=== PATIENT | female | born 1950 | race Caucasian/White ===

== ENCOUNTER → 2018-04-14 | Outpatient (CLI) | payer MEDICARE ==
[~2018-04-14] MED LIST: AMLO1CAP12 PO; ANAS1TAB7 PO; EZET1TAB17 PO; TOLT4CAP PO
== END | disposition home or self-care (01) ==
LOC: RAH 07:29
PROVIDERS: ATTEND Internal Medicine Hematology & Oncology
DX: R92.8 Other abnormal and inconclusive findings on diagnostic imaging of breast (principal); Z85.3 Personal history of malignant neoplasm of breast
CPT/HCPCS: 77066

== ENCOUNTER → 2020-04-22 | Outpatient (CLI) | payer MEDICARE ==
[~2020-04-22] MED LIST changes: +AMLO-104 PO; -AMLO1CAP12 PO
== END | disposition home or self-care (01) ==
LOC: RAH 09:51
PROVIDERS: ATTEND Internal Medicine Hematology & Oncology
DX: C50.919 Malignant neoplasm of unspecified site of unspecified female breast (principal); R92.2 Inconclusive mammogram; N63.20 Unspecified lump in the left breast, unspecified quadrant
CPT/HCPCS: 77066

== ENCOUNTER 2020-10-15 09:36 | Emergency (ER) | payer MEDICARE ==
[~2020-10-15] VITALS: Ht 165.1 cm; Wt 95.3 kg
[2020-10-15 11:28] VITALS: BP 100/47
[2020-10-15] MEDS ORDERED: MAGNESIUM CITRATE 296 ML SOLUTION PO ONE (11:30)
[2020-10-15] MEDS ORDERED: MAGNESIUM CITRATE 296 ML SOLUTION ONE (11:34)
[2020-10-15] MEDS ORDERED: POLY17PO4 PO (12:05)
[2020-10-15] MEDS ORDERED: ACETAMINOPHEN 500 MG TABLET PO ONE (12:30)
[2020-10-15] MEDS ORDERED: ACETAMINOPHEN 500 MG TABLET ONE (12:31)
== END 2020-10-15 12:35 | disposition home or self-care (01) ==
LOC: EDH 09:36
DX: K59.00 Constipation, unspecified (principal); G89.29 Other chronic pain; M54.9 Dorsalgia, unspecified; I10 Essential (primary) hypertension; Z79.899 Other long term (current) drug therapy; Z98.890 Other specified postprocedural states
CPT/HCPCS: 74018